=== PATIENT | female | born 1995 | race African-American/Black ===

== ENCOUNTER 2020-02-09 01:27 | Emergency (ER) | payer MEDICAID ==
--- NOTE | 2020-02-09 01:43 | ER Document Report ---
ED Medical Screen (RME) - General Stated Complaint: VAGINAL BLEEDING Time Seen by Provider: 02/09/20 01:38 Mode of Arrival: Ambulatory Information source: Patient Notes: Patient is a 5 para 1 elective 1 spontaneous two 24-year-old -[place] female coming in tonight awakened by a wet feeling in her bed. [place] like she had wet herself. She went and sat on the toilet and passed a large blood clot that she fears is her fetus. She has had 2 spontaneous abortions in the past. Not having any pain. Not having any vomiting. Gen: tearful Abd:non-distended Pulm:no resp distress I have greeted and performed a rapid initial assessment of this patient. A comprehensive ED assessment and evaluation of the patient, analysis of test results and completion of the medical decision making process will be conducted by additional ED providers. Physical Exam - Vital signs Vitals: Temp Pulse Resp BP Pulse Ox 98.2 F 66 16 116/76 100 02/09/20 01:34 02/09/20 01:34 02/09/20 01:34 02/09/20 01:34 02/09/20 01:34 Course - Vital Signs Vital signs: Temp Pulse Resp BP Pulse Ox 98.2 F 66 16 116/76 100 02/09/20 01:34 02/09/20 01:34 02/09/20 01:34 02/09/20 01:34 02/09/20 01:34
--- NOTE | 2020-02-09 03:02 | ER Document Report ---
ED GI/ - General Chief Complaint: OB Problem (<20wks) Stated Complaint: VAGINAL BLEEDING Time Seen by Provider: 02/09/20 01:38 Primary Care Provider: MARY HERNANDES PA [Primary Care Provider] - Follow up as needed Mode of Arrival: Ambulatory Notes: CHIEF COMPLAINT: Vaginal bleeding in setting of HPI: 24-year-old female who believes she is approximately 8-1/2 weeks by dates presenting for evaluation of vaginal bleeding today. Woke up and thought she had wet the bed, noticed some blood in the bed and when she sat on the toilet had a small clot dropout. Denies pelvic pain. States she has had some intermittent low back pain over the last week. No fevers. States she has seen D[facility]ETAILER for evaluation of the but has not yet had ultrasound ROS: See HPI - all other systems were reviewed and are otherwise negative Constitutional: no fever or recent illness Eyes: no drainage, no blurred vision ENT: no runny nose, no sore throat Cardiovascular: no chest pain Resp: no SOB, no cough GI: no vomiting, no diarrhea : no dysuria, no vaginal discharge, positive vaginal bleeding Integumentary: no rash Allergy: no hives Musculoskeletal: no extremity pain or swelling Neurological: no numbness/tingling, no weakness MEDICATIONS: I agree with the patient medications as charted by the RN. ALLERGIES: I agree with the allergies as charted by the RN. PAST MEDICAL HISTORY/PAST SURGICAL HISTORY: Reviewed and agree as charted by RN. SOCIAL HISTORY: Reviewed and agree as charted by RN. FAMILY HISTORY: No significant familial comorbid conditions directly related to patient complaint EXAM: Reviewed vital signs as charted by RN. CONSTITUTIONAL: Alert and oriented and responds appropriately to questions. Well-appearing; well-nourished HEAD: Normocephalic; atraumatic EYES: PERRL; Conjunctivae clear, sclerae non-icteric ENT: normal nose; no rhinorrhea; moist mucous membranes; pharynx without lesions noted NECK: Supple without meningismus; non-tender; no cervical lymphadenopathy, no masses CARD: RRR; no murmurs, no clicks, no rubs, no gallops; symmetric distal pulses RESP: Normal chest excursion without splinting or tachypnea; breath sounds clear and equal bilaterally; no wheezes, no rhonchi, no rales ABD/GI: Normal bowel sounds; non-distended; soft, non-tender, no rebound, no guarding; no palpable organomegaly or masses : 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 External genitalia normal. No skin lesions noted. Pelvic Exam: There is a small amount of dark red blood in the vaginal vault no clots. No purulent discharge. Cervix appears normal. No CMT. cervical os is closed. No lesions or masses. Uterus enlarged consistent with dates and non tender. Right/Left adnexa normal size and non tender. BACK: The back appears normal and is non-tender to palpation, there is no CVA tenderness EXT: Normal ROM in all joints; non-tender to palpation; no cyanosis, no effusions, no edema SKIN: Normal color for age and race; warm; dry; good turgor; no acute lesions noted NEURO: Moves all extremities equally; Motor and sensory function intact PSYCH: The patient's mood and manner are appropriate. Grooming and personal hygiene are appropriate. MDM: 24-year-old female with vaginal bleeding in the setting of . Will obtain baseline screening labs ultrasound to evaluate for miscarriage. Past Medical History - General Information source: Patient - Social History Smoking Status: Former Smoker Family History: Reviewed & Not Pertinent Past Surgical History: Reports: Hx Oral Surgery Physical Exam - Vital signs Vitals: Temp Pulse Resp BP Pulse Ox 98.2 F 66 16 116/76 100 02/09/20 01:34 02/09/20 01:34 02/09/20 01:34 02/09/20 01:34 02/09/20 01:34 Course - Re-evaluation Re-evalutation: 02/09/20 05:14 I discussed evaluation results at length with the patient. Her ultrasound imaging shows a moderate to large subchorionic hemorrhage likely the source of her bleeding. We discussed bleeding precautions. Her DOVETAILER is in [place] she will call them today to discuss further follow-up she was noted to have vaginitis. Will place her on Flagyl. - Vital Signs Vital signs: Temp Pulse Resp BP Pulse Ox 98.2 F 66 16 116/76 100 02/09/20 01:34 02/09/20 01:34 02/09/20 01:34 02/09/20 01:34 02/09/20 01:34 - Laboratory Result Diagrams: 02/09/20 02:43 02/09/20 02:43 Laboratory results interpreted by me: 02/09/20 02/09/20 02:39 02:43 Beta HCG, Quant 499858.00 H Urine Blood LARGE H Discharge - Discharge Clinical Impression: Threatened miscarriage in early , Bacterial vaginitis Subchorionic hemorrhage Qualifiers: Fetus number: single or unspecified fetus Trimester: first trimester Qualified Code(s): O41.8X10 - Other specified disorders of amniotic fluid and membranes, first trimester, not applicable or unspecified; O46.8X1 - Other antepartum hemorrhage, first trimester Condition: Stable Disposition: HOME, SELF-CARE Additional Instructions: 1. follow up with OB for repeat Beta-HCG blood test in 3-5 days 2. follow up with OB for further evaluation and treatment, call for appt. 3. return to the ED for any worsening/onset of abdominal pain, vomiting or vaginal bleeding where you are saturating > 1 pad per hour 4. It was noted on your ultrasound today that you have a moderate sized subchorionic hemorrhage that this is likely the source of your bleeding. 5. It was also noted that you have a bacterial vaginal infection today take the Flagyl to treat this Prescriptions: Metronidazole [Flagyl 500 mg Tablet] 500 mg PO BID #14 tablet Referrals: MARY HERNANDES PA [Primary Care Provider] - Follow up as needed
[2020-02-09 03:08] LABS: APPEARANCE,URINE CLEAR; BILIRUBIN,URINE NEGATIVE (NEGATIVE); COLOR,URINE YELLOW; GLUCOSE, URINE NEGATIVE (NEGATIVE); KETONES,URINE NEGATIVE (NEGATIVE); PROTEIN,URINE NEGATIVE (NEGATIVE); URINE SPECIFIC GRAVITY 1.018; UROBILINOGEN,URINE NEGATIVE mg/dL (<2.0)
[2020-02-09 03:12] LABS: ABSOLUTE EOSINOPHILS # (AUTO) 0.1 10^3/uL (0.0-0.6); ABSOLUTE MONOCYTES (AUTO) 0.7 10^3/uL (0.1-1.4); ABSOLUTE NEUT (AUTO) 4.9 10^3/uL (1.7-8.2); BASOPHILS % (AUTO) 0.3 % (0-2); EOSINOPHILS % (AUTO) 0.6 % (0-6); HEMOGLOBIN 13.5 g/dL (12.0-15.5); LYMPHOCYTES % (AUTO) 34.3 % (13-45); MEAN CORPUSCULAR HEMOGLOBIN 29.4 pg (27.0-33.4); MEAN CORPUSCULAR HGB CONC 33.8 g/dL (32.0-36.0); MEAN CORPUSCULAR VOLUME 87 fl (80-97); MONOCYTES % (AUTO) 8.1 % (3-13); PLATELET COUNT 313 10^3/uL (150-450); RED BLOOD COUNT 4.59 10^6/uL (3.72-5.28); RED CELL DISTRIBUTION WIDTH 13.8 % (11.5-14.0); SEGMENTED NEUTROPHILS % (AUTO) 56.7 % (42-78); TOTAL CELLS COUNTED % (AUTO) 100 %; WHITE BLOOD COUNT 8.6 10^3/uL (4.0-10.5)
[2020-02-09 03:32] LABS: ALBUMIN 4.5 g/dL (3.5-5.0); ALKALINE PHOSPHATASE 59 U/L (38-126); ANION GAP 12 (5-19); ASPARTATE AMINO TRANSFERASE 20 U/L (14-36); BILIRUBIN,DIRECT 0.3 mg/dL (0.0-0.4); BILIRUBIN,TOTAL 0.5 mg/dL (0.2-1.3); BLOOD UREA NITROGEN 9 mg/dL (7-20); CARBON DIOXIDE 25 mmol/L (22-30); CHLORIDE 101 mmol/L (98-107); GLUCOSE 85 mg/dL (75-110); POTASSIUM 4.1 mmol/L (3.6-5.0); TOTAL PROTEIN 8.1 g/dL (6.3-8.2)
[2020-02-09 03:36] LABS: BACTERIA (WET MOUNT) 3+ BACTERIA SEEN; RBCS (WET MOUNT) 4+ RBCS SEEN; T.VAGINALIS (WET MOUNT) NO TRICHOMONAS SEEN; WBCS (WET MOUNT) FEW WBCS SEEN; YEAST (WET MOUNT) NO YEAST SEEN
--- NOTE | 2020-02-09 04:38 | RADIOLOGY REPORT (SQ) ---
EXAM: US , Transvaginal EXAM DATE/TIME: 02/09/2020 3:54 AM CLINICAL HISTORY: The patient is 24 years old and is Female; passed large clot in toilet 8.5 wks preg TECHNIQUE: Real-time transvaginal obstetrical ultrasound of the maternal pelvis and a first trimester with image documentation. Transvaginal imaging was used for better evaluation of the fetus and adnexa. COMPARISON: No relevant prior studies available. FINDINGS: GESTATION: There is a single intrauterine gestational sac containing a yolk sac and pole. [place]-rump length corresponds to estimated gestational age of 6 weeks 6 days. JAYASHREE by this ultrasound is 09/28/2020. heart rate is 143 bpm. PLACENTA/AMNIOTIC FLUID: There is a moderate to large sized area of subchorionic hemorrhage measuring 1.4 x 1.1 x 1.3 cm. UTERUS/CERVIX: The uterus measures 11.0 x 6.4 x 5.3 cm. No myometrial mass. The cervix measures 4.0 cm in length and is closed. OVARIES: The right ovary measures 2.6 x 2.1 x 1.4 cm. There is a corpus luteal cyst in the right ovary measuring 2.0 x 1.6 x 1.6 cm. Blood flow is demonstrated in the right ovary. The left ovary was not visualized on this exam. FREE FLUID: No free fluid. IMPRESSION: 1. Single viable intrauterine with estimated gestational age of 6 weeks 6 days. 2. Moderate to large area of subchorionic hemorrhage.
[2020-02-09 05:02] LABS: CHLAM PCR NOT DETECTED (NOT DETECT)
[2020-02-09] MEDS ORDERED: METRONIDAZOLE 500 MG TABLET PO ONE (05:14)
[2020-02-09 05:31] VITALS: BP 120/69
== END 2020-02-09 05:29 | disposition home or self-care (01) ==
LOC: ER 01:27
DX: O20.0 Threatened abortion (principal); O23.591 Infection of other part of genital tract in pregnancy, first trimester; B96.89 Other specified bacterial agents as the cause of diseases classified elsewhere; O99.891 Other specified diseases and conditions complicating pregnancy; M54.5 Low back pain; Z87.891 Personal history of nicotine dependence; Z3A.00 Weeks of gestation of pregnancy not specified
CPT/HCPCS: 99284; 86900; 86901; 36415; 87210; 84702; 85025; 80053; 81001; 87491; 87591; 76817; 93976; J3490